=== PATIENT | female | born 1980 | race Hispanic/Latino ===

== ENCOUNTER 2017-12-17 09:09 | Outpatient (CLI) | payer OTHER ==
--- NOTE | 2017-12-17 10:30 | RAD ---
THREE VIEWS RIGHT HAND: Indication: Concern for hand fracture. FINDINGS: No acute fracture or subluxation is evident. No radiopaque foreign body is evident. IMPRESSION: No acute osseous abnormality. POS: [facility]
== END 2017-12-17 09:10 | disposition home or self-care (01) ==
LOC: RAD 09:09
PROVIDERS: ATTEND Orthopaedic Surgery
DX: Z03.89 Encounter for observation for other suspected diseases and conditions ruled out (principal)

== ENCOUNTER 2020-10-28 06:57 | Day surgery (SDC) | payer OTHER ==
[2020-10-25 08:06] VITALS: BMI 42.0
[2020-10-28] MEDS ORDERED: Scopolamine 1.5 mg/72 hour Patch ONE (08:12)
[2020-10-28] MEDS ORDERED: Midazolam HCl 2 mg/2 ml Vial ONE (09:19)
[2020-10-28] MEDS ORDERED: Lidocaine 1% (PF) 30 ML VIAL ONE (09:33)
[2020-10-28] MEDS ORDERED: Fentanyl 100 MCG/2 ML VIAL ONE (09:41)
[2020-10-28] MEDS ORDERED: Propofol 1,000 MG/100 ML VIAL IV ONE (09:42)
[2020-10-28] MEDS ORDERED: Ketamine 50 MG/ML (10ML VIAL) ONE (09:42)
[2020-10-28] MEDS ORDERED: Ondansetron PF 4 MG/2 ML Vial ONE (09:47)
[2020-10-28] MEDS ORDERED: Ketorolac Tromethamine 30 MG/ML VIAL ONE (09:47)
[2020-10-28] MEDS ORDERED: Dexamethasone 20 MG/5 ML VIAL ONE (09:47)
[2020-10-28] MEDS ORDERED: Promethazine HCl 25 MG/ML VIAL ONE (10:31)
== END 2020-10-28 11:30 | disposition home or self-care (01) ==
LOC: SDC 06:57
PROVIDERS: ATTEND Orthopaedic Surgery
PROC: 01N50ZZ Release Median Nerve, Open Approach (ICD-10-PCS; principal; 2020-10-28)
DX: G56.01 Carpal tunnel syndrome, right upper limb (principal); I10 Essential (primary) hypertension; E78.1 Pure hyperglyceridemia; E66.01 Morbid (severe) obesity due to excess calories; Z68.41 Body mass index [BMI] 40.0-44.9, adult; Z79.899 Other long term (current) drug therapy
CPT/HCPCS: 93005; 93010; J0690; J1100; J1885; J2001; J2250; J2405; J2550; J2704; J3010

== ENCOUNTER 2021-01-10 08:58 | Day surgery (SDC) | payer OTHER ==
[2021-01-08 12:05] VITALS: BMI 42.9
[2021-01-10] MEDS ORDERED: Lidocaine 1% (PF) 30 ML VIAL ONE (09:30)
[2021-01-10] MEDS ORDERED: Midazolam HCl 2 mg/2 ml Vial ONE ×2 (09:36→11:49)
[2021-01-10] MEDS ORDERED: Scopolamine 1.5 mg/72 hour Patch ONE (09:37)
[2021-01-10] MEDS ORDERED: Fentanyl 100 MCG/2 ML VIAL ONE (11:49)
[2021-01-10] MEDS ORDERED: Ketamine 50 MG/ML (10ML VIAL) ONE (11:58)
[2021-01-10] MEDS ORDERED: Propofol 500 MG/50 ML VIAL ONE (12:00)
[2021-01-10] MEDS ORDERED: Dexamethasone 20 MG/5 ML VIAL ONE (12:01)
[2021-01-10] MEDS ORDERED: Ondansetron PF 4 MG/2 ML Vial ONE (12:01)
== END 2021-01-10 14:10 | disposition home or self-care (01) ==
LOC: SDC 08:58
PROVIDERS: ATTEND Orthopaedic Surgery
PROC: 01N50ZZ Release Median Nerve, Open Approach (ICD-10-PCS; principal; 2021-01-10)
DX: G56.02 Carpal tunnel syndrome, left upper limb (principal); I10 Essential (primary) hypertension; E78.1 Pure hyperglyceridemia; E66.01 Morbid (severe) obesity due to excess calories; Z68.41 Body mass index [BMI] 40.0-44.9, adult; Z98.890 Other specified postprocedural states; Z79.899 Other long term (current) drug therapy
CPT/HCPCS: J0690; J1100; J2001; J2250; J2405; J2704; J3010